=== PATIENT | female | born 1965 | race Caucasian/White ===

== ENCOUNTER 2016-11-06 15:14 | Emergency (ER) | payer MEDICAID ==
[~2016-11-06] VITALS: Ht 152.4 cm; Wt 68.0 kg
[2016-11-06 15:15] VITALS: BP_SYST 151
[2016-11-06] MEDS ORDERED: ASPIRIN 81 MG TAB.CHEW PO ONE (15:45)
[2016-11-06 15:58] LABS: BLOOD GAS PH 7.549 (7.350-7.450)
[2016-11-06 15:59] LABS: ABG TOTAL HEMOGLOBIN 8.5 G/dL (12.0-18.0); BLOOD GAS BASE EXCESS -0.8 mmol/L (-3.0-3.0); BLOOD GAS COHb% 1.2 % (0.5-1.5); BLOOD GAS HHB 2.2 % (0.0-6.0); BLOOD O2Hb% 95.8 % (94.0-97.0)
[2016-11-06] MEDS ORDERED: LORazepam 2 MG/ML VIAL (FOR ER USE) IVP ONE (16:00)
[2016-11-06 16:11] LABS: BASOPHILS % (AUTO) 0.8 % (0.0-2.0); EOSINOPHILS # (AUTO) 0.1 K/uL (0.0-0.4); EOSINOPHILS % (AUTO) 1.5 % (0.0-4.0); HEMATOCRIT 26.1 % (36-48); HEMOGLOBIN 7.9 g/dL (12.0-16.0); LYMPHOCYTES # (AUTO) 1.7 K/uL (1.0-5.5); LYMPHOCYTES % (AUTO) 27.7 % (20.5-51.5); MEAN CORPUSCULAR HEMOGLOBIN 21 pg (27-31); MEAN CORPUSCULAR HGB CONC 30 % (32-36); MEAN CORPUSCULAR VOLUME 67 fL (79.0-98.0); MONOCYTES # (AUTO) 0.5 K/uL (0.0-1.0); MONOCYTES % (AUTO) 7.9 % (1.7-9.3); NEUTROPHILS # (AUTO) 3.8 K/uL (1.8-7.7); NEUTROPHILS % (AUTO) 62.1 % (40.0-70.0); PLATELET COUNT (AUTO) 286 K/uL (130-430); RED BLOOD CELL COUNT(AUTO) 3.88 MIL/uL (4.2-6.2); RED CELL DISTRIBUTION WIDTH 16.8 % (9.0-15.0); WHITE BLOOD COUNT (AUTO) 6.1 K/uL (4.8-10.8)
[2016-11-06 16:17] LABS: CALCIUM 8.6 mg/dL (8.4-11.0); CREATININE 0.63 mg/dL (0.55-1.30); POTASSIUM 3.3 mmol/L (3.5-5.1)
[2016-11-06 16:19] LABS: PROTHROMBIN TIME 10.6 SECS (9.5-12.5)
[2016-11-06 16:22] LABS: ALBUMIN 3.4 g/dL (3.4-4.8); TOTAL BILIRUBIN 0.5 mg/dL (0.0-1.0)
[2016-11-06 16:25] LABS: BILIRUBIN,URINE NEGATIVE (NEGATIVE); BLOOD, URINE NEGATIVE (NEGATIVE); CLARITY/URINE CLEAR (CLEAR); COLOR,URINE YELLOW (YELLOW); GLUCOSE,URINE NEGATIVE (NEGATIVE); KETONES,URINE TRACE (NEGATIVE); LEUKOCYTE ESTERASE ,URINE NEGATIVE (NEGATIVE); NITRITE, URINE NEGATIVE (NEGATIVE); PH,URINE 6.5 (5.0-8.0); PROTEIN URINE NEGATIVE (NEGATIVE)
[2016-11-06] MEDS ORDERED: POTASSIUM CHLORIDE 20 MEQ TAB.PRT.SR PO ONE (16:30)
[2016-11-06 17:15] VITALS: BP_SYST 158
== END 2016-11-06 17:15 | disposition home or self-care (01) ==
LOC: SED 15:14
DX: F41.9 Anxiety disorder, unspecified (principal); E87.6 Hypokalemia; D64.9 Anemia, unspecified
CPT/HCPCS: 36415; 36600; 71010; 80053; 81003; 82803; 83880; 84484; 85025; 85379; 85610; 93005; 96374; 99285; J2060

== ENCOUNTER 2017-05-13 19:33 | Emergency (ER) | payer MEDICAID ==
[~2017-05-13] VITALS: Ht 152.4 cm; Wt 59.0 kg
[2017-05-13 19:46] VITALS: BP_SYST 122
--- NOTE | 2017-05-13 19:57 | NUR ---
Patient triaged and placed in waiting room. VSS and patient appears in no acute distress at this time. Accompanied by family, awaiting available bed, and MD notified of need for MSE.
--- NOTE | 2017-05-13 20:45 | NUR ---
Pt ambulatory tro torrie ramirez for evaluation
--- NOTE | 2017-05-13 20:50 | NUR ---
Patient arrived to ED a/o x 3 with c/o anxiety like symptoms x 1 hour. Patient reports rapid onset of chest pain radiating to left arm, SOB and ABD pain. Upon assessment respirations even and unlabored. EKG demonstrates sinus rhythm. Skin warm and dry. Denies N/V.
--- NOTE | 2017-05-13 21:00 | NUR ---
ED MD Jay at bedside for medical evaluation.
[2017-05-13] MEDS ORDERED: LORazepam 1 MG TABLET PO ONE (21:15)
[2017-05-13 22:07] VITALS: BP_SYST 131
--- NOTE | 2017-05-13 22:07 | NUR ---
Patient given written and verbal discharge instructions and verbalizes understanding. ER MD discussed with patient the results and treatment provided. Patient in stable condition. ID arm band removed. Rx of Xanax given. Patient educated on pain management and to follow up with PMD. Pain Scale 2/10 tolerable for patient. Opportunity for questions provided and answered.
== END 2017-05-13 22:07 | disposition home or self-care (01) ==
LOC: SED 19:33
DX: F41.9 Anxiety disorder, unspecified (principal); Z90.710 Acquired absence of both cervix and uterus; Z86.2 Personal history of diseases of the blood and blood-forming organs and certain disorders involving the immune mechanism; Z88.8 Allergy status to other drugs, medicaments and biological substances
CPT/HCPCS: 93005; 99284

== ENCOUNTER 2017-10-17 01:10 | Emergency (ER) | payer MEDICAID ==
[~2017-10-17] VITALS: Ht 160 cm; Wt 63.5 kg
[2017-10-17 01:25] VITALS: BP_SYST 138
--- NOTE | 2017-10-17 01:25 | NUR ---
Patient to ER via triage with c/o right sided pain from her neck down to her right leg. Patient reports taking Ibuprofen 800 mg @ 2330 without relief. Patient denies any trauma/injury. Patient is awake, alert and oriented in no acute distress, vital signs stable, respirations even and unlabored, skin warm and dry to touch. Patient is resting quietly in position of comfort. Awaiting evaluation by ER MD, will continue to observe and assess.
--- NOTE | 2017-10-17 01:25 | NUR ---
Patient to ER bed 6 to gown for evaluation. Side rails up. Report given to ASHLEY Magaña.
--- NOTE | 2017-10-17 01:30 | NUR ---
Dr Carrasco at bedside to evaluate patient.
[2017-10-17] MEDS ORDERED: LORazepam 1 MG TABLET PO ONE (01:45)
[2017-10-17] MEDS ORDERED: KETOROLAC TROMETHAMINE 60 MG/2 ML VIAL IM ONE (01:45)
--- NOTE | 2017-10-17 01:45 | NUR ---
Patient to X-ray department for films in stable condition via wheelchair.
--- NOTE | 2017-10-17 01:55 | NUR ---
Patient returned from radiology in stable condition via wheelchair.
[2017-10-17 02:40] VITALS: BP_SYST 123
--- NOTE | 2017-10-17 02:40 | NUR ---
Patient given written and verbal discharge instructions and verbalizes understanding. ER MD discussed with patient the results and treatment provided. Patient in stable condition. ID arm band removed. Rx of Motrin, Tramadol given. Patient educated on pain management and to follow up with PMD. Pain Scale 2. Opportunity for questions provided and answered. Medication side effect fact sheet provided. Patient left ER ambulating with slow, steady gait in no acute distress. Patient reports that she has a friend to drive her home. No adverse reaction noted to medication, no questions related to aftercare.
== END 2017-10-17 02:40 | disposition home or self-care (01) ==
LOC: SED 01:10
DX: S46.811A Strain of other muscles, fascia and tendons at shoulder and upper arm level, right arm, initial encounter (principal); S39.012A Strain of muscle, fascia and tendon of lower back, initial encounter; M54.30 Sciatica, unspecified side; F41.9 Anxiety disorder, unspecified; D64.9 Anemia, unspecified; Z90.49 Acquired absence of other specified parts of digestive tract; Z90.710 Acquired absence of both cervix and uterus; R03.0 Elevated blood-pressure reading, without diagnosis of hypertension; X58.XXXA Exposure to other specified factors, initial encounter; Y93.89 Activity, other specified; Y92.89 Other specified places as the place of occurrence of the external cause; Y99.8 Other external cause status
CPT/HCPCS: 71045; 72100; 96372; 99284; J1885

== ENCOUNTER 2017-11-30 00:55 | Emergency (ER) | payer MEDICAID ==
[~2017-11-30] VITALS: Ht 152.4 cm; Wt 66.2 kg
[2017-11-30] MEDS ORDERED: NACL 0.9% 1,000 ML IV ONE (00:59)
[2017-11-30 01:10] VITALS: BP_SYST 136
[2017-11-30 01:40] LABS: BASOPHILS % (AUTO) 0.8 % (0.0-2.0); EOSINOPHILS # (AUTO) 0.4 K/uL (0.0-0.4); EOSINOPHILS % (AUTO) 6.2 % (0.0-4.0); HEMATOCRIT 42.1 % (36-48); HEMOGLOBIN 14.5 g/dL (12.0-16.0); LYMPHOCYTES # (AUTO) 2.2 K/uL (1.0-5.5); LYMPHOCYTES % (AUTO) 34.9 % (20.5-51.5); MEAN CORPUSCULAR HEMOGLOBIN 30 pg (27-31); MEAN CORPUSCULAR HGB CONC 34 % (32-36); MEAN CORPUSCULAR VOLUME 86 fL (79.0-98.0); MONOCYTES # (AUTO) 0.5 K/uL (0.0-1.0); MONOCYTES % (AUTO) 8.5 % (1.7-9.3); NEUTROPHILS # (AUTO) 3.1 K/uL (1.8-7.7); NEUTROPHILS % (AUTO) 49.6 % (40.0-70.0); PLATELET COUNT (AUTO) 304 K/uL (130-430); RED BLOOD CELL COUNT(AUTO) 4.91 MIL/uL (4.2-6.2); RED CELL DISTRIBUTION WIDTH 14.3 % (9.0-15.0); WHITE BLOOD COUNT (AUTO) 6.2 K/uL (4.8-10.8)
[2017-11-30 01:51] LABS: CALCIUM 8.8 mg/dL (8.4-11.0); CREATININE 0.72 mg/dL (0.55-1.30); POTASSIUM 3.6 mmol/L (3.5-5.1)
[2017-11-30 01:53] LABS: PROTHROMBIN TIME 9.9 SECS (9.5-12.5)
[2017-11-30 01:55] LABS: ALBUMIN 3.4 g/dL (3.4-4.8); TOTAL BILIRUBIN 0.3 mg/dL (0.0-1.0)
[2017-11-30] MEDS ORDERED: MAG HYDROX/AL HYDROX/SIMETH 30 ML, BELLADONNA ALKALOIDS/PHENOBARB 10 ML, LIDOCAINE VISC... PO ONE ×3 (02:15)
[2017-11-30 02:22] LABS: BILIRUBIN,URINE NEGATIVE (NEGATIVE); BLOOD, URINE NEGATIVE (NEGATIVE); CLARITY/URINE CLEAR (CLEAR); COLOR,URINE YELLOW (YELLOW); GLUCOSE,URINE NEGATIVE (NEGATIVE); KETONES,URINE NEGATIVE (NEGATIVE); LEUKOCYTE ESTERASE ,URINE NEGATIVE (NEGATIVE); NITRITE, URINE NEGATIVE (NEGATIVE); PH,URINE 6.5 (5.0-8.0); PROTEIN URINE NEGATIVE (NEGATIVE)
[2017-11-30 02:50] VITALS: BP_SYST 127
== END 2017-11-30 02:50 | disposition home or self-care (01) ==
LOC: SED 00:55
DX: F41.9 Anxiety disorder, unspecified (principal); K21.9 Gastro-esophageal reflux disease without esophagitis; R03.0 Elevated blood-pressure reading, without diagnosis of hypertension; Z86.2 Personal history of diseases of the blood and blood-forming organs and certain disorders involving the immune mechanism; Z88.8 Allergy status to other drugs, medicaments and biological substances
CPT/HCPCS: 36415; 80053; 81003; 82150; 83690; 85025; 85610; 85730; 99284; J2001; J7030

== ENCOUNTER 2018-03-05 14:29 | Emergency (ER) | payer MEDICAID ==
[~2018-03-05] VITALS: Ht 152.4 cm; Wt 68.0 kg
[2018-03-05 14:53] VITALS: BP_SYST 98
[2018-03-05] MEDS ORDERED: NACL 0.9% 1,000 ML IV ONE (15:19)
[2018-03-05] MEDS ORDERED: KETOROLAC TROMETHAMINE 30 MG VIAL IVP ONE (15:30)
[2018-03-05 15:51] LABS: BILIRUBIN,URINE NEGATIVE (NEGATIVE); BLOOD, URINE NEGATIVE (NEGATIVE); CLARITY/URINE CLEAR (CLEAR); COLOR,URINE YELLOW (YELLOW); GLUCOSE,URINE NEGATIVE (NEGATIVE); KETONES,URINE TRACE (NEGATIVE); LEUKOCYTE ESTERASE ,URINE NEGATIVE (NEGATIVE); NITRITE, URINE NEGATIVE (NEGATIVE); PROTEIN URINE NEGATIVE (NEGATIVE)
[2018-03-05 16:01] LABS: BASOPHILS # (AUTO) 0.1 K/uL (0.0-0.2); BASOPHILS % (AUTO) 1.1 % (0.0-2.0); EOSINOPHILS # (AUTO) 0.3 K/uL (0.0-0.4); EOSINOPHILS % (AUTO) 3.7 % (0.0-4.0); HEMATOCRIT 45.7 % (36-48); HEMOGLOBIN 15.2 g/dL (12.0-16.0); LYMPHOCYTES # (AUTO) 1.7 K/uL (1.0-5.5); LYMPHOCYTES % (AUTO) 23.6 % (20.5-51.5); MEAN CORPUSCULAR HEMOGLOBIN 31 pg (27-31); MEAN CORPUSCULAR HGB CONC 33 % (32-36); MEAN CORPUSCULAR VOLUME 94 fL (79.0-98.0); MONOCYTES # (AUTO) 0.5 K/uL (0.0-1.0); MONOCYTES % (AUTO) 7.3 % (1.7-9.3); NEUTROPHILS # (AUTO) 4.6 K/uL (1.8-7.7); NEUTROPHILS % (AUTO) 64.3 % (40.0-70.0); PLATELET COUNT (AUTO) 271 K/uL (130-430); RED BLOOD CELL COUNT(AUTO) 4.88 MIL/uL (4.2-6.2); RED CELL DISTRIBUTION WIDTH 14.4 % (9.0-15.0); WHITE BLOOD COUNT (AUTO) 7.2 K/uL (4.8-10.8)
[2018-03-05 16:14] LABS: CALCIUM 8.8 mg/dL (8.4-11.0); CREATININE 0.52 mg/dL (0.55-1.30); POTASSIUM 3.3 mmol/L (3.5-5.1)
[2018-03-05 16:18] LABS: ALBUMIN 3.4 g/dL (3.4-4.8); TOTAL BILIRUBIN 0.6 mg/dL (0.0-1.0)
[2018-03-05] MEDS ORDERED: MORPHINE 4 MG/ML INJ. SYRINGE IVP ONE (17:00)
[2018-03-05 17:19] VITALS: BP_SYST 98
== END 2018-03-05 17:20 | disposition home or self-care (01) ==
LOC: SED 14:29
DX: S33.9XXA Sprain of unspecified parts of lumbar spine and pelvis, initial encounter (principal); S70.01XA Contusion of right hip, initial encounter; F41.9 Anxiety disorder, unspecified; Z86.2 Personal history of diseases of the blood and blood-forming organs and certain disorders involving the immune mechanism; Z90.710 Acquired absence of both cervix and uterus; Z88.8 Allergy status to other drugs, medicaments and biological substances; W01.0XXA Fall on same level from slipping, tripping and stumbling without subsequent striking against object, initial encounter; Y93.89 Activity, other specified; Y92.89 Other specified places as the place of occurrence of the external cause; Y99.8 Other external cause status
CPT/HCPCS: 36415; 72100; 73502; 73552; 80053; 81003; 85025; 96374; 96375; 99285; J1885; J2270; J7030; 96361

== ENCOUNTER 2018-03-13 12:59 | Emergency (ER) | payer MEDICAID ==
[~2018-03-13] VITALS: Ht 152.4 cm; Wt 68.0 kg
[2018-03-13 13:12] VITALS: BP_SYST 120
--- NOTE | 2018-03-13 13:18 | NUR ---
Pt placed in bed 6
--- NOTE | 2018-03-13 13:22 | NUR ---
ER AL Awad examining patient.
[2018-03-13] MEDS ORDERED: PANTOPRAZOLE SODIUM 40 MG TAB PO ONE (13:30)
[2018-03-13] MEDS ORDERED: MAG-AL HYDROX/SIMETH 30 ML UDC PO ONE (13:30)
--- NOTE | 2018-03-13 13:37 | NUR ---
Pt AAOx4 ambulated into ED c/o 11/15 pain to throat x "a few months." Pt was seen at [facility] where they attempted a bronchoscopy but failed as her "vocal chord were closed and they couldn't insert the tube the whole way through." Pt has been prescribed antibiotics but is non-compliant. Pt has appointment with ENT specialist at the end of April. Skin pink dry and warm, breathing even and unlabored. No other injuries/complaints per pt/noted. Will continue to monitor.
--- NOTE | 2018-03-13 13:40 | NUR ---
PT taken to radiology in stable condition
[2018-03-13 14:29] LABS: BASOPHILS # (AUTO) 0.1 K/uL (0.0-0.2); BASOPHILS % (AUTO) 0.8 % (0.0-2.0); EOSINOPHILS # (AUTO) 0.2 K/uL (0.0-0.4); HEMATOCRIT 47.7 % (36-48); HEMOGLOBIN 15.4 g/dL (12.0-16.0); LYMPHOCYTES # (AUTO) 2.2 K/uL (1.0-5.5); LYMPHOCYTES % (AUTO) 26.2 % (20.5-51.5); MEAN CORPUSCULAR HEMOGLOBIN 31 pg (27-31); MEAN CORPUSCULAR HGB CONC 32 % (32-36); MEAN CORPUSCULAR VOLUME 95 fL (79.0-98.0); MONOCYTES # (AUTO) 0.7 K/uL (0.0-1.0); MONOCYTES % (AUTO) 8.3 % (1.7-9.3); NEUTROPHILS # (AUTO) 5.1 K/uL (1.8-7.7); NEUTROPHILS % (AUTO) 61.7 % (40.0-70.0); PLATELET COUNT (AUTO) 306 K/uL (130-430); RED BLOOD CELL COUNT(AUTO) 5.05 MIL/uL (4.2-6.2); RED CELL DISTRIBUTION WIDTH 14.6 % (9.0-15.0); WHITE BLOOD COUNT (AUTO) 8.3 K/uL (4.8-10.8)
[2018-03-13 14:50] LABS: CALCIUM 9.5 mg/dL (8.4-11.0); CREATININE 0.5 mg/dL (0.55-1.30)
[2018-03-13 14:54] LABS: ALBUMIN 3.5 g/dL (3.4-4.8); TOTAL BILIRUBIN 0.6 mg/dL (0.0-1.0)
[2018-03-13 15:01] LABS: BILIRUBIN,URINE NEGATIVE (NEGATIVE); BLOOD, URINE NEGATIVE (NEGATIVE); CLARITY/URINE CLEAR (CLEAR); COLOR,URINE YELLOW (YELLOW); GLUCOSE,URINE NEGATIVE (NEGATIVE); KETONES,URINE NEGATIVE (NEGATIVE); LEUKOCYTE ESTERASE ,URINE NEGATIVE (NEGATIVE); NITRITE, URINE NEGATIVE (NEGATIVE); PH,URINE 7.5 (5.0-8.0); PROTEIN URINE NEGATIVE (NEGATIVE); UROBILINOGEN,URINE 0.2 (0.2-1.0)
--- NOTE | 2018-03-13 15:49 | NUR ---
Patient given written and verbal discharge instructions and verbalizes understanding. ER MD discussed with patient the results and treatment provided. Patient in stable condition. ID arm band removed. Rx of Omeprazole, Prednisone given. Patient educated on pain management and to follow up with PMD. Pain Scale 0/10. Opportunity for questions provided and answered. Medication side effect fact sheet provided.
[2018-03-13 15:50] VITALS: BP_SYST 116
== END 2018-03-13 15:50 | disposition home or self-care (01) ==
LOC: SED 12:59
DX: K21.9 Gastro-esophageal reflux disease without esophagitis (principal); F41.9 Anxiety disorder, unspecified; Z86.2 Personal history of diseases of the blood and blood-forming organs and certain disorders involving the immune mechanism; Z90.49 Acquired absence of other specified parts of digestive tract; Z90.710 Acquired absence of both cervix and uterus; Z88.8 Allergy status to other drugs, medicaments and biological substances
CPT/HCPCS: 36415; 70360-TC; 80053; 81003; 83690-TC; 85025; 99285

== ENCOUNTER 2018-05-04 16:12 | Inpatient (IN) | payer MEDICAID ==
[~2018-05-04] VITALS: Ht 152.4 cm; Wt 68.9 kg
[2018-05-04 16:22] VITALS: BP_SYST 115
[2018-05-04] MEDS ORDERED: NACL 0.9% 1,000 ML IV ONE (17:15)
[2018-05-04 17:29] LABS: BILIRUBIN,URINE NEGATIVE (NEGATIVE); BLOOD, URINE NEGATIVE (NEGATIVE); CLARITY/URINE CLEAR (CLEAR); COLOR,URINE YELLOW (YELLOW); GLUCOSE,URINE NEGATIVE (NEGATIVE); KETONES,URINE 1+ (NEGATIVE); LEUKOCYTE ESTERASE ,URINE NEGATIVE (NEGATIVE); NITRITE, URINE NEGATIVE (NEGATIVE); PROTEIN URINE TRACE (NEGATIVE)
[2018-05-04 17:33] LABS: BACTERIA,URINE FEW /HPF (None Seen); MUCUS,URINE 2+ /LPF (None Seen); RBC,URINE 0-3 /HPF (0-3); WBC,URINE 0-3 /HPF (0-3)
[2018-05-04 18:01] LABS: BASOPHILS % (AUTO) 0.1 % (0.0-2.0); EOSINOPHILS % (AUTO) 0.2 % (0.0-4.0); HEMATOCRIT 45.5 % (36-48); HEMOGLOBIN 15.8 g/dL (12.0-16.0); LYMPHOCYTES # (AUTO) 1.2 K/uL (1.0-5.5); MEAN CORPUSCULAR HEMOGLOBIN 32 pg (27-31); MEAN CORPUSCULAR HGB CONC 35 % (32-36); MEAN CORPUSCULAR VOLUME 92 fL (79.0-98.0); MONOCYTES # (AUTO) 0.4 K/uL (0.0-1.0); MONOCYTES % (AUTO) 3.5 % (1.7-9.3); NEUTROPHILS # (AUTO) 10.5 K/uL (1.8-7.7); NEUTROPHILS % (AUTO) 86.2 % (40.0-70.0); PLATELET COUNT (AUTO) 281 K/uL (130-430); RED BLOOD CELL COUNT(AUTO) 4.96 MIL/uL (4.2-6.2); WHITE BLOOD COUNT (AUTO) 12.1 K/uL (4.8-10.8)
[2018-05-04 18:09] LABS: CREATININE 0.61 mg/dL (0.55-1.30); POTASSIUM 3.7 mmol/L (3.5-5.1)
[2018-05-04 18:12] LABS: PROTHROMBIN TIME 9.9 SECS (9.5-12.5)
[2018-05-04 18:14] LABS: ALBUMIN 3.6 g/dL (3.4-4.8)
[2018-05-04] MEDS ORDERED: cefTRIAXone 1 GM in D5W 50 ML IV ONE (18:45)
[2018-05-04] MEDS ORDERED: NACL 0.9% 2,500 ML IV ONE (18:45)
[2018-05-04] MEDS ORDERED: metroNIDAZOLE 500 mg/NS 100 ML IV ONE (18:45)
[2018-05-04] MEDS ORDERED: MORPHINE 2 MG/ML INJ. SYRINGE IVP ONE (18:45)
[2018-05-04] MEDS ORDERED: MORPHINE 4 MG/ML INJ. SYRINGE IVP PRN ×4 (19:00→21:00)
[2018-05-04] MEDS ORDERED: D5NS 1,000 ML IV ONE (19:00)
[2018-05-04] MEDS ORDERED: cefTRIAXone 1 GM VIAL ONE (19:15)
[2018-05-04] MEDS ORDERED: MORPHINE 4 MG/ML INJ. SYRINGE ONE (19:18)
[2018-05-04] MEDS ORDERED: MUPIROCIN 2% TOPICAL OINTMENT 22 GM NS PRN (19:30)
[2018-05-04] MEDS ORDERED: LORazepam 2 MG/ML VIAL IVP PRN (19:30)
[2018-05-04] MEDS ORDERED: D5NS 1,000 ML IV SCH (19:30)
[2018-05-04] MEDS ORDERED: POTASSIUM CHLORIDE 20 MEQ TAB.PRT.SR PO PRN (19:30)
[2018-05-04] MEDS ORDERED: ONDANSETRON HCL 4 MG/2 ML VIAL IVP PRN (19:30)
[2018-05-04] MEDS ORDERED: ZOLPIDEM TARTRATE 5 MG TABLET PO PRN (19:30)
[2018-05-04] MEDS ORDERED: DOCUSATE SODIUM 100 MG CAPSULE PO PRN (19:30)
[2018-05-04] MEDS ORDERED: ACETAMINOPHEN 325 MG TABLET PO PRN (19:30)
[2018-05-04] MEDS ORDERED: PIPERACILLIN/TAZO 3.375/DEX-IS 50 ML IV ONE (19:30)
[2018-05-04] MEDS ORDERED: MAGNESIUM SULFATE 50 ML IV PRN (19:30)
[2018-05-04 20:42] VITALS: BP_SYST 128
[2018-05-04] MEDS ORDERED: PIPERACILLIN/TAZOBACTAM 3.375 GM/VIAL (ZOSYN) IV ONE (22:01)
[2018-05-04 22:12] VITALS: BP_SYST 128
[2018-05-04] MEDS: ONDANSETRON HCL 4 MG/2 ML VIAL IVP PRN (22:38)
[2018-05-04] MEDS: PIPERACILLIN/TAZO 3.375/DEX-IS 50 ML IV SCH (22:47)
[2018-05-04] MEDS: NACL 0.9% 1,000 ML IV SCH (23:07)
[2018-05-05] MEDS ORDERED: PIPERACILLIN/TAZO 3.375/DEX-IS 50 ML IV SCH
[2018-05-05 02:00] VITALS: BP_SYST 108
[2018-05-05] MEDS: PIPERACILLIN/TAZO 3.375/DEX-IS 50 ML IV SCH ×3 (04:56→15:31)
[2018-05-05 07:09] LABS: BASOPHILS % (AUTO) 0.5 % (0.0-2.0); EOSINOPHILS # (AUTO) 0.2 K/uL (0.0-0.4); EOSINOPHILS % (AUTO) 2.1 % (0.0-4.0); HEMATOCRIT 36.5 % (36-48); HEMOGLOBIN 12.9 g/dL (12.0-16.0); LYMPHOCYTES # (AUTO) 1.9 K/uL (1.0-5.5); LYMPHOCYTES % (AUTO) 26.1 % (20.5-51.5); MEAN CORPUSCULAR HEMOGLOBIN 33 pg (27-31); MEAN CORPUSCULAR HGB CONC 35 % (32-36); MEAN CORPUSCULAR VOLUME 93 fL (79.0-98.0); MONOCYTES # (AUTO) 0.6 K/uL (0.0-1.0); MONOCYTES % (AUTO) 7.9 % (1.7-9.3); NEUTROPHILS # (AUTO) 4.6 K/uL (1.8-7.7); NEUTROPHILS % (AUTO) 63.4 % (40.0-70.0); PLATELET COUNT (AUTO) 247 K/uL (130-430); RED BLOOD CELL COUNT(AUTO) 3.93 MIL/uL (4.2-6.2); RED CELL DISTRIBUTION WIDTH 12.4 % (9.0-15.0); WHITE BLOOD COUNT (AUTO) 7.3 K/uL (4.8-10.8)
[2018-05-05 07:19] LABS: CALCIUM 7.9 mg/dL (8.4-11.0); CREATININE 0.63 mg/dL (0.55-1.30); POTASSIUM 3.1 mmol/L (3.5-5.1)
[2018-05-05 07:27] LABS: ALBUMIN 2.5 g/dL (3.4-4.8); TOTAL BILIRUBIN 0.9 mg/dL (0.0-1.0)
[2018-05-05] MEDS: NACL 0.9% 1,000 ML IV SCH ×2 (07:41→13:15)
[2018-05-05 12:31] VITALS: BP_SYST 100
[2018-05-05] MEDS ORDERED: KCL 20 mEq in 100 mL (PREMIX) 100 ML IV ONE (12:45)
[2018-05-05] MEDS: HYDROmorphone 1 MG INJ. 1 MG/ML AMPUL IVP PRN ×2 (12:48→20:01)
[2018-05-05] MEDS ORDERED: fentaNYL CITRATE/PF 100 MCG/2 ML AMP IVP PRN ×2 (15:45)
[2018-05-05] MEDS ORDERED: KETOROLAC TROMETHAMINE 30 MG VIAL IVP PRN (15:45)
[2018-05-05] MEDS ORDERED: ONDANSETRON HCL 4 MG/2 ML VIAL IVP PRN (15:45)
[2018-05-05] MEDS: ALBUTEROL SULFATE 0.083% 2.5 MG/3 ML VIAL.NEB INH PRN ×2 (18:06→22:43)
[2018-05-05] MEDS ORDERED: ALBUTEROL SULFATE 0.083% 2.5 MG/3 ML VIAL.NEB INH ONE (18:14)
[2018-05-05 19:45] VITALS: BP_SYST 117
[2018-05-05] MEDS: ONDANSETRON HCL 4 MG/2 ML VIAL IVP PRN (20:00)
[2018-05-05] MEDS: LORazepam 2 MG/ML VIAL IVP PRN (23:11)
[2018-05-05] MEDS ORDERED: MAG-AL HYDROX/SIMETH 30 ML UDC PO PRN (23:45)
[2018-05-05] MEDS: guaiFENesin 200 MG/10 ML UDC PO PRN (23:59)
[2018-05-06] MEDS: PIPERACILLIN/TAZO 3.375/DEX-IS 50 ML IV SCH ×5 (00:37→22:09)
[2018-05-06] MEDS: NACL 0.9% 1,000 ML IV SCH ×3 (00:37→22:09)
[2018-05-06 00:45] VITALS: BP_SYST 117
[2018-05-06] MEDS: LORazepam 2 MG/ML VIAL IVP PRN (09:43)
[2018-05-06] MEDS: ALBUTEROL SULFATE 0.083% 2.5 MG/3 ML VIAL.NEB INH PRN (10:25)
[2018-05-06] MEDS: guaiFENesin 200 MG/10 ML UDC PO PRN (10:29)
[2018-05-06 12:02] VITALS: BP_SYST 99
[2018-05-06] MEDS ORDERED: ROCURONIUM BROMIDE 10 MG/ML (ZEMURON) IV ONE (15:56)
[2018-05-06] MEDS ORDERED: GLYCOPYRROLATE 0.2 MG/ML VIAL IJ ONE (15:56)
[2018-05-06] MEDS ORDERED: MIDAZOLAM HCL 5 MG/5 ML VIAL IVP ONE (15:56)
[2018-05-06] MEDS ORDERED: LIDOCAINE 2%, 20 ML MDV INJ ONE (15:56)
[2018-05-06] MEDS ORDERED: BUPIVACAINE /EPINEPHRINE/PF 0.5% 30 ML VIAL INJ ONE (15:56)
[2018-05-06] MEDS ORDERED: DEXAMETHASONE SOD PHOSPHATE 20 MG/5 ML VIAL IVP ONE (15:56)
[2018-05-06] MEDS ORDERED: LR 1,000 ML IV.SOLN IV ONE (15:56)
[2018-05-06] MEDS ORDERED: PROPOFOL 200MG/ 20ML VIAL (DIPRIVAN) IV ONE (15:56)
[2018-05-06] MEDS ORDERED: KETOROLAC TROMETHAMINE 30 MG VIAL IVP ONE (15:56)
[2018-05-06] MEDS ORDERED: ALBUTEROL SULFATE 0.083% 2.5 MG/3 ML VIAL.NEB INH ONE (15:56)
[2018-05-06] MEDS ORDERED: fentaNYL CITRATE/PF 100 MCG/2 ML AMP IVP ONE (15:56)
[2018-05-06] MEDS ORDERED: NS 1000 ML IV.SOLN IV ONE (15:56)
[2018-05-06] MEDS ORDERED: SEVOFLURANE 15 MIN GAS INH ONE (15:56)
[2018-05-06 16:02] VITALS: BP_SYST 118
[2018-05-06 19:40] VITALS: BP_SYST 128
[2018-05-07] MEDS: ONDANSETRON HCL 4 MG/2 ML VIAL IVP PRN (00:09)
[2018-05-07] MEDS: NACL 0.9% 1,000 ML IV SCH ×3 (00:10→13:15)
[2018-05-07] MEDS: HYDROmorphone 1 MG INJ. 1 MG/ML AMPUL IVP PRN (00:10)
[2018-05-07] MEDS: ALBUTEROL SULFATE 0.083% 2.5 MG/3 ML VIAL.NEB INH PRN (00:34)
[2018-05-07 01:38] VITALS: BP_SYST 105
[2018-05-07] MEDS: PIPERACILLIN/TAZO 3.375/DEX-IS 50 ML IV SCH ×2 (04:23→08:37)
[2018-05-07 08:35] VITALS: BP_SYST 97
[2018-05-07] MEDS ORDERED: METR500T PO (09:34)
[2018-05-07] MEDS ORDERED: AMOX-426 PO (09:34)
[2018-05-07 11:28] VITALS: BP_SYST 101
[2018-05-07 11:50] VITALS: BP_SYST 101
[2018-05-07] MEDS ORDERED: HYDROcodone/ACETAMIN 5-325 MG TAB (NORCO/ VICODIN) PO ONE (12:15)
[2018-05-07 14:25] VITALS: BP_SYST 97
== END 2018-05-07 15:05 | disposition home or self-care (01) | DRG 233 ==
LOC: SED 16:12 → SMU 19:03
PROVIDERS: ADMIT Internal Medicine; ATTEND Internal Medicine
PROC: 0DTJ4ZZ Resection of Appendix, Percutaneous Endoscopic Approach (ICD-10-PCS; principal; 2018-05-05 14:30)
DX: K35.33 Acute appendicitis with perforation, localized peritonitis, and gangrene, with abscess (principal); K31.84 Gastroparesis; E11.43 Type 2 diabetes mellitus with diabetic autonomic (poly)neuropathy; R65.10 Systemic inflammatory response syndrome (SIRS) of non-infectious origin without acute organ dysfunction; K57.20 Diverticulitis of large intestine with perforation and abscess without bleeding; F41.9 Anxiety disorder, unspecified; Z90.710 Acquired absence of both cervix and uterus; Z98.84 Bariatric surgery status; Z88.8 Allergy status to other drugs, medicaments and biological substances; Z90.49 Acquired absence of other specified parts of digestive tract; Z88.2 Allergy status to sulfonamides
CPT/HCPCS: 36415; 71045; 80053; 81000-TC; 83605; 84484; 85025; 85610-TC; 85730-TC; 87040-TC; 87081; 88304; 93005; 94640; 96361; 96374; 99285; C1727; J0696; J1100; J1170; J1885; J2001; J2060; J2250; J2270; J2405; J2543; J2704; J3010; J3480; J3490; J7030; J7060; J7120; J7613

== ENCOUNTER 2018-05-22 08:31 | Inpatient (IN) | payer MEDICAID ==
[~2018-05-22] VITALS: Ht 152.4 cm; Wt 68.0 kg
[~2018-05-22 08:31] MED LIST: AMOX-426 PO; METR500T PO
[2018-05-22 08:58] VITALS: BP_SYST 128
[2018-05-22] MEDS ORDERED: ONDANSETRON HCL 4 MG/2 ML VIAL IVP ONE ×2 (09:30→11:30)
[2018-05-22] MEDS ORDERED: KETOROLAC TROMETHAMINE 30 MG VIAL IVP ONE (09:30)
[2018-05-22 10:09] LABS: BASOPHILS % (AUTO) 0.8 % (0.0-2.0); EOSINOPHILS # (AUTO) 0.3 K/uL (0.0-0.4); EOSINOPHILS % (AUTO) 5.3 % (0.0-4.0); HEMATOCRIT 43.7 % (36-48); HEMOGLOBIN 14.7 g/dL (12.0-16.0); LYMPHOCYTES # (AUTO) 1.5 K/uL (1.0-5.5); LYMPHOCYTES % (AUTO) 26.5 % (20.5-51.5); MEAN CORPUSCULAR HEMOGLOBIN 31 pg (27-31); MEAN CORPUSCULAR HGB CONC 34 % (32-36); MEAN CORPUSCULAR VOLUME 93 fL (79.0-98.0); MONOCYTES # (AUTO) 0.5 K/uL (0.0-1.0); MONOCYTES % (AUTO) 8.5 % (1.7-9.3); NEUTROPHILS # (AUTO) 3.4 K/uL (1.8-7.7); NEUTROPHILS % (AUTO) 58.9 % (40.0-70.0); PLATELET COUNT (AUTO) 252 K/uL (130-430); RED BLOOD CELL COUNT(AUTO) 4.68 MIL/uL (4.2-6.2); WHITE BLOOD COUNT (AUTO) 5.7 K/uL (4.8-10.8)
[2018-05-22 10:16] LABS: CALCIUM 8.8 mg/dL (8.4-11.0); CREATININE 0.52 mg/dL (0.55-1.30)
[2018-05-22 10:19] LABS: INR 0.9 (0.8-1.2); PROTHROMBIN TIME 9.5 SECS (9.5-12.5)
[2018-05-22 10:20] LABS: ALBUMIN 3.2 g/dL (3.4-4.8); TOTAL BILIRUBIN 0.4 mg/dL (0.0-1.0)
[2018-05-22] MEDS ORDERED: IOHEXOL 100 ML IV ONE (10:29)
[2018-05-22] MEDS ORDERED: LORA-258 PO (11:28)
[2018-05-22] MEDS ORDERED: OMEP20CA10 PO (11:28)
[2018-05-22] MEDS ORDERED: PRO40 PO (11:28)
[2018-05-22] MEDS ORDERED: MORPHINE 4 MG/ML INJ. SYRINGE IVP ONE (11:30)
[2018-05-22] MEDS ORDERED: D5NS 1,000 ML IV SCH (12:35)
[2018-05-22 13:09] VITALS: BP_SYST 132
[2018-05-22 16:03] VITALS: BP_SYST 116
[2018-05-22] MEDS ORDERED: MORPHINE 4 MG/ML INJ. SYRINGE IVP PRN ×2 (16:15)
[2018-05-22] MEDS ORDERED: ACETAMINOPHEN 325 MG TABLET PO PRN (16:15)
[2018-05-22] MEDS ORDERED: METOCLOPRAMIDE HCL 10 MG/2 ML VIAL IVP PRN (16:15)
[2018-05-22] MEDS: D5NS 1,000 ML IV SCH (16:54)
[2018-05-23] MEDS: D5NS 1,000 ML IV SCH ×4 (00:57→23:34)
[2018-05-23 01:59] VITALS: BP_SYST 117
[2018-05-23] MEDS ORDERED: LORazepam 1 MG TABLET ONE (02:01)
[2018-05-23] MEDS: ONDANSETRON HCL 4 MG/2 ML VIAL IVP PRN (02:56)
[2018-05-23 08:00] VITALS: BP_SYST 106
[2018-05-23 12:10] VITALS: BP_SYST 142
[2018-05-23 16:35] VITALS: BP_SYST 102
[2018-05-23 19:33] VITALS: BP_SYST 118
[2018-05-23 20:44] LABS: BILIRUBIN,URINE NEGATIVE (NEGATIVE); BLOOD, URINE NEGATIVE (NEGATIVE); CLARITY/URINE CLEAR (CLEAR); COLOR,URINE YELLOW (YELLOW); GLUCOSE,URINE NEGATIVE (NEGATIVE); KETONES,URINE NEGATIVE (NEGATIVE); LEUKOCYTE ESTERASE ,URINE NEGATIVE (NEGATIVE); NITRITE, URINE NEGATIVE (NEGATIVE); PH,URINE 6.5 (5.0-8.0); PROTEIN URINE NEGATIVE (NEGATIVE); UROBILINOGEN,URINE 0.2 (0.2-1.0)
[2018-05-24] MEDS: LORazepam 1 MG TABLET PO PRN ×2 (00:08→12:33)
[2018-05-24 01:01] VITALS: BP_SYST 95
[2018-05-24 08:03] VITALS: BP_SYST 97
[2018-05-24] MEDS: D5NS 1,000 ML IV SCH ×3 (09:52→18:18)
[2018-05-24 12:02] VITALS: BP_SYST 111
[2018-05-24 16:02] VITALS: BP_SYST 118
[2018-05-24] MEDS ORDERED: PANTOPRAZOLE SODIUM 40 MG/VIAL (PROTONIX) IVP ONE (17:15)
[2018-05-24] MEDS: LACTOBACILLUS RHAMNOSUS GG 1 CAP CAPSULE PO SCH (20:26)
[2018-05-24] MEDS: CHOLESTYRAMINE/SUCROSE 4 GM/PACKET PO SCH (20:26)
[2018-05-25] MEDS: LORazepam 2 MG/ML VIAL IVP PRN ×2 (00:54→09:02)
[2018-05-25] MEDS: ONDANSETRON HCL 4 MG/2 ML VIAL IVP PRN (00:55)
[2018-05-25 01:03] VITALS: BP_SYST 124
[2018-05-25 07:17] LABS: CALCIUM 8.2 mg/dL (8.4-11.0); CREATININE 0.63 mg/dL (0.55-1.30); POTASSIUM 3.5 mmol/L (3.5-5.1)
[2018-05-25 08:00] VITALS: BP_SYST 113
[2018-05-25] MEDS: D5NS 1,000 ML IV SCH ×2 (08:13→15:53)
[2018-05-25 08:20] LABS: BASOPHILS % (AUTO) 0.6 % (0.0-2.0); EOSINOPHILS # (AUTO) 0.4 K/uL (0.0-0.4); EOSINOPHILS % (AUTO) 6.6 % (0.0-4.0); HEMATOCRIT 37.6 % (36-48); HEMOGLOBIN 13.1 g/dL (12.0-16.0); LYMPHOCYTES # (AUTO) 1.7 K/uL (1.0-5.5); LYMPHOCYTES % (AUTO) 31.8 % (20.5-51.5); MEAN CORPUSCULAR HEMOGLOBIN 33 pg (27-31); MEAN CORPUSCULAR HGB CONC 35 % (32-36); MEAN CORPUSCULAR VOLUME 93 fL (79.0-98.0); MONOCYTES # (AUTO) 0.5 K/uL (0.0-1.0); MONOCYTES % (AUTO) 9.5 % (1.7-9.3); NEUTROPHILS # (AUTO) 2.8 K/uL (1.8-7.7); NEUTROPHILS % (AUTO) 51.5 % (40.0-70.0); PLATELET COUNT (AUTO) 221 K/uL (130-430); RED BLOOD CELL COUNT(AUTO) 4.04 MIL/uL (4.2-6.2); RED CELL DISTRIBUTION WIDTH 12.1 % (9.0-15.0); WHITE BLOOD COUNT (AUTO) 5.4 K/uL (4.8-10.8)
[2018-05-25] MEDS: LACTOBACILLUS RHAMNOSUS GG 1 CAP CAPSULE PO SCH ×2 (09:00→21:00)
[2018-05-25] MEDS: CHOLESTYRAMINE/SUCROSE 4 GM/PACKET PO SCH ×3 (09:00→21:00)
[2018-05-25] MEDS: PANTOPRAZOLE SODIUM 40 MG/VIAL (PROTONIX) IVP SCH (09:02)
[2018-05-25 11:45] VITALS: BP_SYST 111
[2018-05-25] MEDS: MIDAZOLAM HCL 5 MG/5 ML VIAL ONE ×5 (12:30→13:53)
[2018-05-25] MEDS ORDERED: MIDAZOLAM HCL 5 MG/5 ML VIAL ONE (12:30)
[2018-05-25] MEDS: fentaNYL CITRATE/PF 100 MCG/2 ML AMP ONE ×3 (12:30→13:43)
[2018-05-25] MEDS ORDERED: SIMETHICONE 40 MG/0.6 ML ML ONE (12:31)
[2018-05-25] MEDS ORDERED: IOHEXOL 100 ML IV ONE (15:16)
[2018-05-25 16:00] VITALS: BP_SYST 114
[2018-05-25] MEDS ORDERED: DIPHENHYDRAMINE INJ 50 MG/ML VIAL ONE (16:10)
[2018-05-25 16:43] VITALS: BP_SYST 121
[2018-05-25] MEDS ORDERED: NITROGLYCERIN 0.4 MG TAB.SUBL SL PRN (18:00)
[2018-05-25 20:45] VITALS: BP_SYST 116
[2018-05-26] MEDS: D5NS 1,000 ML IV SCH ×2 (00:34→08:46)
[2018-05-26] MEDS: LORazepam 2 MG/ML VIAL IVP PRN (00:34)
[2018-05-26 00:37] VITALS: BP_SYST 110
[2018-05-26 07:29] LABS: BASOPHILS % (AUTO) 0.3 % (0.0-2.0); EOSINOPHILS # (AUTO) 0.3 K/uL (0.0-0.4); EOSINOPHILS % (AUTO) 5.8 % (0.0-4.0); HEMATOCRIT 38.3 % (36-48); LYMPHOCYTES # (AUTO) 1.5 K/uL (1.0-5.5); LYMPHOCYTES % (AUTO) 30.3 % (20.5-51.5); MEAN CORPUSCULAR HEMOGLOBIN 31 pg (27-31); MEAN CORPUSCULAR HGB CONC 34 % (32-36); MEAN CORPUSCULAR VOLUME 93 fL (79.0-98.0); MONOCYTES # (AUTO) 0.5 K/uL (0.0-1.0); MONOCYTES % (AUTO) 8.9 % (1.7-9.3); NEUTROPHILS # (AUTO) 2.8 K/uL (1.8-7.7); NEUTROPHILS % (AUTO) 54.7 % (40.0-70.0); PLATELET COUNT (AUTO) 225 K/uL (130-430); RED BLOOD CELL COUNT(AUTO) 4.14 MIL/uL (4.2-6.2); RED CELL DISTRIBUTION WIDTH 11.9 % (9.0-15.0); WHITE BLOOD COUNT (AUTO) 5.1 K/uL (4.8-10.8)
[2018-05-26 07:30] LABS: CALCIUM 7.7 mg/dL (8.4-11.0); CREATININE 0.61 mg/dL (0.55-1.30); POTASSIUM 3.2 mmol/L (3.5-5.1)
[2018-05-26 07:34] LABS: ALBUMIN 2.6 g/dL (3.4-4.8); TOTAL BILIRUBIN 0.5 mg/dL (0.0-1.0)
[2018-05-26 08:00] VITALS: BP_SYST 104
[2018-05-26] MEDS: PANTOPRAZOLE SODIUM 40 MG/VIAL (PROTONIX) IVP SCH (08:46)
[2018-05-26] MEDS: CHOLESTYRAMINE/SUCROSE 4 GM/PACKET PO SCH (08:47)
[2018-05-26] MEDS: LACTOBACILLUS RHAMNOSUS GG 1 CAP CAPSULE PO SCH (08:47)
[2018-05-26] MEDS ORDERED: POTASSIUM CHLORIDE 20 MEQ TAB.PRT.SR PO ONE (11:00)
[2018-05-26 12:17] VITALS: BP_SYST 111
[2018-05-26] MEDS ORDERED: MAG-AL HYDROX/SIMETH 30 ML UDC PO PRN (12:30)
[2018-05-26 12:51] VITALS: BP_SYST 111
[2018-05-26] MEDS ORDERED: SUCRALFATE 1 GM/10 ML UDC GT SCH (17:00)
== END 2018-05-26 15:17 | disposition home or self-care (01) | DRG 241 ==
LOC: SED 08:31 → SMU 12:35 → STU 05-25 17:38
PROVIDERS: ADMIT Internal Medicine Hospice and Palliative Medicine; ATTEND Internal Medicine Hospice and Palliative Medicine
PROC: 0DB78ZX Excision of Stomach, Pylorus, Via Natural or Artificial Opening Endoscopic, Diagnostic (ICD-10-PCS; principal; 2018-05-25 15:00)
DX: K29.70 Gastritis, unspecified, without bleeding (principal); E44.1 Mild protein-calorie malnutrition; N94.89 Other specified conditions associated with female genital organs and menstrual cycle; E11.9 Type 2 diabetes mellitus without complications; J45.909 Unspecified asthma, uncomplicated; F41.9 Anxiety disorder, unspecified; N83.209 Unspecified ovarian cyst, unspecified side; K91.5 Postcholecystectomy syndrome; Y83.6 Removal of other organ (partial) (total) as the cause of abnormal reaction of the patient, or of later complication, without mention of misadventure at the time of the procedure; Y92.89 Other specified places as the place of occurrence of the external cause; Z98.84 Bariatric surgery status; Z90.49 Acquired absence of other specified parts of digestive tract; Z88.8 Allergy status to other drugs, medicaments and biological substances; Z79.899 Other long term (current) drug therapy; Z90.710 Acquired absence of both cervix and uterus
CPT/HCPCS: 36415; 43239; 71260-TC; 76700-TC; 76830-TC; 76857; 80048; 80053; 80061; 81003; 82150-TC; 83690-TC; 83735-TC; 84484; 84703; 85025; 85610-TC; 85730-TC; 87081; 87230-TC; 88305; 88312; 88313; 93005; 93306; 96374; 96375; 96376; 99285; C9113; G0378; J1200; J1885; J2060; J2250; J2270; J2405; J2765; J3010; J7042; Q9967

== ENCOUNTER 2018-07-20 23:29 | Emergency (ER) | payer MEDICAID ==
[~2018-07-20] VITALS: Ht 152.4 cm; Wt 68.0 kg
[~2018-07-20 23:29] MED LIST changes: -AMOX-426 PO; +LORA-258 PO; -METR500T PO; +PRO40 PO
[2018-07-20 23:30] VITALS: BP_SYST 127
--- NOTE | 2018-07-21 00:12 | NUR ---
Patient to ER bed 1 to gown for evaluation. Side rails up. Report given to MARCELL RAMIREZ.
--- NOTE | 2018-07-21 00:15 | NUR ---
Pt C/O of sneezing, dry mouth, and watery eyes x 3 days. Today her symptoms worsend and is now C/O headache and dizziness. Pt states she took Tylenol and allergy medication with no relief. Vital signs are stable, will continue to monitor.
--- NOTE | 2018-07-21 00:26 | NUR ---
ER Dr. Carrasco at bedside examining patient.
--- NOTE | 2018-07-21 00:30 | NUR ---
Note shawneecindy in ED - 07/21/18 at 0132 by [email or web address] Patient's guardian given written and verbal discharge instructions and verbalizes understanding. ER discussed with patient's guardian the results and treatment provided. Patient in stable condition. ID arm band removed. Rx of Mineral Oil given. Patient's guardian educated on pain management, fever management, and to follow up with primary physician. Pain Scale/FLACC 0/10. Opportunity for questions provided and answered.Medication side effect fact sheet provided.
[2018-07-21] MEDS ORDERED: NACL 0.9% 1,000 ML IV ONE (00:45)
[2018-07-21] MEDS ORDERED: KETOROLAC TROMETHAMINE 30 MG VIAL IVP ONE (00:45)
[2018-07-21] MEDS ORDERED: PANTOPRAZOLE SODIUM 40 MG/VIAL (PROTONIX) IVP ONE (01:00)
--- NOTE | 2018-07-21 01:00 | NUR ---
Note shawneecindy in ED - 07/21/18 at 0133 by [email or web address] Patient's guardian given written and verbal discharge instructions and verbalizes understanding. ER discussed with patient's guardian the results and treatment provided. Patient in stable condition. ID arm band removed. Rx of Mineral Oil given. Patient's guardian educated on pain management, fever management, and to follow up with primary physician. Pain Scale/FLACC 0/10. Opportunity for questions provided and answered.Medication side effect fact sheet provided.
--- NOTE | 2018-07-21 01:00 | NUR ---
Pt is resting in bed, no acute distress noted at this time. Will continue to monitor
[2018-07-21 01:29] LABS: BASOPHILS % (AUTO) 0.7 % (0.0-2.0); EOSINOPHILS # (AUTO) 0.2 K/uL (0.0-0.4); EOSINOPHILS % (AUTO) 4.3 % (0.0-4.0); HEMATOCRIT 44.9 % (36-48); HEMOGLOBIN 15.6 g/dL (12.0-16.0); LYMPHOCYTES # (AUTO) 1.8 K/uL (1.0-5.5); LYMPHOCYTES % (AUTO) 32.2 % (20.5-51.5); MEAN CORPUSCULAR HEMOGLOBIN 32 pg (27-31); MEAN CORPUSCULAR HGB CONC 35 % (32-36); MEAN CORPUSCULAR VOLUME 92 fL (79.0-98.0); MONOCYTES # (AUTO) 0.5 K/uL (0.0-1.0); NEUTROPHILS % (AUTO) 53.8 % (40.0-70.0); PLATELET COUNT (AUTO) 279 K/uL (130-430); RED BLOOD CELL COUNT(AUTO) 4.86 MIL/uL (4.2-6.2); RED CELL DISTRIBUTION WIDTH 12.8 % (9.0-15.0); WHITE BLOOD COUNT (AUTO) 5.6 K/uL (4.8-10.8)
[2018-07-21 01:45] VITALS: BP_SYST 127
[2018-07-21 01:50] LABS: CALCIUM 9.1 mg/dL (8.4-11.0); CREATININE 0.56 mg/dL (0.55-1.30); POTASSIUM 3.6 mmol/L (3.5-5.1)
--- NOTE | 2018-07-21 02:03 | NUR ---
Patient given written and verbal discharge instructions and verbalizes understanding. ER MD discussed with patient the results and treatment provided. Patient in stable condition. ID arm band removed. IV catheter removed intact and dressing applied, no active bleeding. Rx of Promethazine and Motrin given. Patient educated on pain management and to follow up with PMD. Pain Scale 0/10. Opportunity for questions provided and answered. Medication side effect fact sheet provided.
== END 2018-07-21 02:03 | disposition home or self-care (01) ==
LOC: SED 23:29
DX: J06.9 Acute upper respiratory infection, unspecified (principal); F41.9 Anxiety disorder, unspecified; Z86.2 Personal history of diseases of the blood and blood-forming organs and certain disorders involving the immune mechanism; Z88.8 Allergy status to other drugs, medicaments and biological substances
CPT/HCPCS: 36415; 71045; 80048; 85025; 86710; 96361; 96374; 96375; 99284; C9113; J1885; J7030

== ENCOUNTER 2018-08-18 11:28 | Emergency (ER) | payer MEDICAID ==
[~2018-08-18] VITALS: Ht 154.9 cm; Wt 68.0 kg
[2018-08-18 11:28] VITALS: BP_SYST 128
--- NOTE | 2018-08-18 11:28 | NUR ---
Placed in room 02 . Placed on manager cardiac cath, blood pressure machine and pulse oximeter. To gown for exam. Side rails up.
--- NOTE | 2018-08-18 11:30 | NUR ---
EKG DONE AT BEDSIDE
--- NOTE | 2018-08-18 11:32 | NUR ---
Pt AAOx4 ambulated into ED c/o intermittent mid chest pain radiating to L chest since 3 am with worsening symptoms prior to arrival. Pt denies N/V/D, but reports difficulty breathing. SaO2 99% on RA. No other injuries/complaints per pt/noted. Will continue to monitor.
--- NOTE | 2018-08-18 11:52 | NUR ---
JEFF Humphrey at bedside examining patient.
[2018-08-18] MEDS: ASPIRIN 81 MG TAB.CHEW PO ONE (12:32)
[2018-08-18 12:43] LABS: BASOPHILS % (AUTO) 0.7 % (0.0-2.0); EOSINOPHILS # (AUTO) 0.2 K/uL (0.0-0.4); EOSINOPHILS % (AUTO) 3.4 % (0.0-4.0); HEMATOCRIT 46.3 % (36-48); HEMOGLOBIN 15.9 g/dL (12.0-16.0); LYMPHOCYTES # (AUTO) 1.9 K/uL (1.0-5.5); LYMPHOCYTES % (AUTO) 32.5 % (20.5-51.5); MEAN CORPUSCULAR HEMOGLOBIN 32 pg (27-31); MEAN CORPUSCULAR HGB CONC 35 % (32-36); MEAN CORPUSCULAR VOLUME 92 fL (79.0-98.0); MONOCYTES # (AUTO) 0.4 K/uL (0.0-1.0); NEUTROPHILS # (AUTO) 3.3 K/uL (1.8-7.7); NEUTROPHILS % (AUTO) 56.4 % (40.0-70.0); PLATELET COUNT (AUTO) 243 K/uL (130-430); RED BLOOD CELL COUNT(AUTO) 5.02 MIL/uL (4.2-6.2); RED CELL DISTRIBUTION WIDTH 13.2 % (9.0-15.0); WHITE BLOOD COUNT (AUTO) 5.8 K/uL (4.8-10.8)
[2018-08-18 12:45] LABS: CALCIUM 9.3 mg/dL (8.4-11.0); CREATININE 0.69 mg/dL (0.55-1.30); POTASSIUM 3.9 mmol/L (3.5-5.1)
[2018-08-18 12:50] LABS: ALBUMIN 3.7 g/dL (3.4-4.8); TOTAL BILIRUBIN 0.7 mg/dL (0.0-1.0)
[2018-08-18 13:33] VITALS: BP_SYST 128
--- NOTE | 2018-08-18 13:33 | NUR ---
Patient given written and verbal discharge instructions and verbalizes understanding. ER MD discussed with patient the results and treatment provided. Patient in stable condition. ID arm band removed. IV catheter removed intact and dressing applied, no active bleeding. Rx of given. Patient educated on pain management and to follow up with PMD. Pain Scale 0/10. Opportunity for questions provided and answered. Medication side effect fact sheet provided.
== END 2018-08-18 13:33 | disposition home or self-care (01) ==
LOC: SED 11:28
DX: R07.89 Other chest pain (principal); F41.9 Anxiety disorder, unspecified; R11.0 Nausea; R03.0 Elevated blood-pressure reading, without diagnosis of hypertension; Z86.2 Personal history of diseases of the blood and blood-forming organs and certain disorders involving the immune mechanism; Z90.89 Acquired absence of other organs; Z90.710 Acquired absence of both cervix and uterus; Z88.8 Allergy status to other drugs, medicaments and biological substances; Z79.899 Other long term (current) drug therapy
CPT/HCPCS: 36415; 71045; 80053; 82550-TC; 82962; 84484; 85025; 93005; 99284

== ENCOUNTER 2018-09-27 21:02 | Emergency (ER) | payer BC, MEDICAID ==
[~2018-09-27] VITALS: Ht 152.4 cm; Wt 70.3 kg
[2018-09-27 21:03] VITALS: BP_SYST 136
[2018-09-27] MEDS ORDERED: NACL 0.9% 1,000 ML IV ONE (21:38)
[2018-09-27] MEDS ORDERED: DIPHENHYDRAMINE INJ 50 MG/ML VIAL IVP ONE ×2 (21:45→23:30)
[2018-09-27] MEDS ORDERED: ONDANSETRON HCL 4 MG/2 ML VIAL IVP ONE (21:45)
[2018-09-27] MEDS ORDERED: MORPHINE 4 MG/ML INJ. SYRINGE IVP ONE ×2 (21:45→23:30)
[2018-09-27 22:21] LABS: BASOPHILS # (AUTO) 0.1 K/uL (0.0-0.2); BASOPHILS % (AUTO) 0.5 % (0.0-2.0); EOSINOPHILS # (AUTO) 0.2 K/uL (0.0-0.4); EOSINOPHILS % (AUTO) 1.8 % (0.0-4.0); HEMATOCRIT 46.3 % (36-48); HEMOGLOBIN 15.9 g/dL (12.0-16.0); LYMPHOCYTES # (AUTO) 2.4 K/uL (1.0-5.5); LYMPHOCYTES % (AUTO) 23.9 % (20.5-51.5); MEAN CORPUSCULAR HEMOGLOBIN 32 pg (27-31); MEAN CORPUSCULAR HGB CONC 34 % (32-36); MEAN CORPUSCULAR VOLUME 93 fL (79.0-98.0); MONOCYTES # (AUTO) 0.8 K/uL (0.0-1.0); MONOCYTES % (AUTO) 7.6 % (1.7-9.3); NEUTROPHILS # (AUTO) 6.6 K/uL (1.8-7.7); NEUTROPHILS % (AUTO) 66.2 % (40.0-70.0); PLATELET COUNT (AUTO) 276 K/uL (130-430); RED CELL DISTRIBUTION WIDTH 13.3 % (9.0-15.0); WHITE BLOOD COUNT (AUTO) 9.9 K/uL (4.8-10.8)
[2018-09-27 22:26] LABS: BILIRUBIN,URINE NEGATIVE (NEGATIVE); BLOOD, URINE NEGATIVE (NEGATIVE); CLARITY/URINE CLEAR (CLEAR); GLUCOSE,URINE NEGATIVE (NEGATIVE); KETONES,URINE NEGATIVE (NEGATIVE); LEUKOCYTE ESTERASE ,URINE NEGATIVE (NEGATIVE); NITRITE, URINE NEGATIVE (NEGATIVE); PH,URINE 5.5 (5.0-8.0); PROTEIN URINE NEGATIVE (NEGATIVE); UROBILINOGEN,URINE 0.2 (0.2-1.0)
[2018-09-27 22:44] LABS: COLOR,URINE STRAW (YELLOW)
[2018-09-27 23:10] LABS: CALCIUM 9.2 mg/dL (8.4-11.0); CREATININE 0.67 mg/dL (0.55-1.30); POTASSIUM 3.4 mmol/L (3.5-5.1)
[2018-09-27 23:19] LABS: ALBUMIN 3.6 g/dL (3.4-4.8); TOTAL BILIRUBIN 0.6 mg/dL (0.0-1.0)
[2018-09-28] MEDS ORDERED: MORPHINE 4 MG/ML INJ. SYRINGE IVP ONE (00:45)
[2018-09-28] MEDS ORDERED: KETOROLAC TROMETHAMINE 30 MG VIAL IVP ONE (00:45)
[2018-09-28] MEDS ORDERED: ONDANSETRON HCL 4 MG/2 ML VIAL IVP ONE (00:45)
[2018-09-28 01:25] VITALS: BP_SYST 120
== END 2018-09-28 01:47 | disposition home or self-care (01) ==
LOC: SED 21:02
DX: R10.31 Right lower quadrant pain (principal); R03.0 Elevated blood-pressure reading, without diagnosis of hypertension; F41.9 Anxiety disorder, unspecified; E78.00 Pure hypercholesterolemia, unspecified; Z86.2 Personal history of diseases of the blood and blood-forming organs and certain disorders involving the immune mechanism; Z90.89 Acquired absence of other organs; Z90.710 Acquired absence of both cervix and uterus; Z88.8 Allergy status to other drugs, medicaments and biological substances; Z79.899 Other long term (current) drug therapy
CPT/HCPCS: 36415; 71045; 74176; 76830; 76857; 80053; 81003; 83690; 83880; 84484; 85025; 93005; 96374; 96375; 96376; 99284; J1200; J1885; J2270 ×2; J2405 ×2; J7030

== ENCOUNTER 2018-11-15 14:18 | Inpatient (IN) | payer BC, MEDICAID ==
[~2018-11-15] VITALS: Ht 152.4 cm; Wt 68.0 kg
[2018-11-15 14:20] VITALS: BP_SYST 105
--- NOTE | 2018-11-15 14:28 | NUR ---
Placed in room 04 . Placed on registered nurse cardiac telemetry, blood pressure machine and pulse oximeter. To gown for exam. Side rails up.
--- NOTE | 2018-11-15 14:35 | NUR ---
Pt arrived to ED via ambulation, with complaints of chest pain and bilateral arm numbness x 2 days. Pt denies any N/V/D. Pt is displaying facial symmetry.
[2018-11-15] MEDS ORDERED: ONDANSETRON HCL 4 MG/2 ML VIAL IVP ONE (15:00)
[2018-11-15] MEDS ORDERED: AMIODARONE HCL 150 MG in D5W 97 ML IV ONE (15:00)
[2018-11-15] MEDS ORDERED: MORPHINE 2 MG/ML INJ. SYRINGE IVP ONE (15:00)
[2018-11-15 15:06] LABS: BASOPHILS % (AUTO) 0.7 % (0.0-2.0); EOSINOPHILS # (AUTO) 0.1 K/uL (0.0-0.4); EOSINOPHILS % (AUTO) 2.1 % (0.0-4.0); HEMATOCRIT 45.6 % (36-48); HEMOGLOBIN 15.4 g/dL (12.0-16.0); LYMPHOCYTES # (AUTO) 1.6 K/uL (1.0-5.5); MEAN CORPUSCULAR HEMOGLOBIN 32 pg (27-31); MEAN CORPUSCULAR HGB CONC 34 % (32-36); MEAN CORPUSCULAR VOLUME 94 fL (79.0-98.0); MONOCYTES # (AUTO) 0.4 K/uL (0.0-1.0); MONOCYTES % (AUTO) 6.9 % (1.7-9.3); NEUTROPHILS % (AUTO) 64.3 % (40.0-70.0); PLATELET COUNT (AUTO) 258 K/uL (130-430); RED BLOOD CELL COUNT(AUTO) 4.84 MIL/uL (4.2-6.2); RED CELL DISTRIBUTION WIDTH 13.6 % (9.0-15.0); WHITE BLOOD COUNT (AUTO) 6.3 K/uL (4.8-10.8)
--- NOTE | 2018-11-15 15:10 | NUR ---
PATIENT LEAVING TO CT VIA GURNEY IN STABLE CONDITION.
--- NOTE | 2018-11-15 15:20 | NUR ---
Pt returning from CT on stable condition.
[2018-11-15 15:24] LABS: CALCIUM 9.1 mg/dL (8.4-11.0); CREATININE 0.76 mg/dL (0.55-1.30); POTASSIUM 3.5 mmol/L (3.5-5.1)
[2018-11-15 15:29] LABS: ALBUMIN 3.4 g/dL (3.4-4.8); TOTAL BILIRUBIN 0.6 mg/dL (0.0-1.0)
[2018-11-15 16:06] LABS: PROTHROMBIN TIME 10.1 SECS (9.5-12.5)
[2018-11-15] MEDS ORDERED: ASPIRIN 325 MG TABLET PO ONE (16:30)
--- NOTE | 2018-11-15 16:49 | NUR ---
Patient resting quietly. No acute distress noted. Vital signs within normal range.
--- NOTE | 2018-11-15 17:32 | NUR ---
Medication reconciliation completed with information provided by patient . Any prior medication reconciliation on file was reviewed and corrected.
--- NOTE | 2018-11-15 17:39 | NUR ---
Tele Spoke to Christal to get room assignment.
[2018-11-15] MEDS ORDERED: LORazepam 2 MG/ML VIAL (FOR ER USE) IVP ONE (18:15)
--- NOTE | 2018-11-15 18:25 | NUR ---
ADMISSION NOTE Received patient from ER via mary jo, received report from Abiola RAMIREZ. Patient admitted with diagnosis of Chest pain]. Patient oriented to hospital routine, call light, toileting and safety-patient verbalized understanding.
--- NOTE | 2018-11-15 18:27 | NUR ---
Patient will be admitted to care of Dr. Solorio. Admitted to TELE unit. Will go to room 117-B. Belongings list completed. Summary report printed. Report given at bedside to Rylee RAMIREZ .
[2018-11-15 18:30] VITALS: BP_SYST 123
--- NOTE | 2018-11-15 18:30 | NUR ---
OPENING NOTE PATIENT RECEIVED FROM ER SAYRA, PATIENT IS A&OX4, PATIENT ABLE TO AMBULATE TO BATHROOM FOR URINATION, PATIENT DENIES ANY ACUTE DISTRESS, PATIENT STATING SHE IS STILL HAVING SOME CHEST PAIN, EDUCATED PATIENT ON PLAN OF CARE AND CALL LIGHT SYSTEM, WILL CONTINUE TO MONITOR, SAFETY PRECAUTIONS IN PLACE, CALL LIGHT WITHIN REACH.
--- NOTE | 2018-11-15 19:24 | NUR ---
OPENING NOTES Pt and endorsement received from day shift nurse. Pt is AAOX4, lying in bed. Pt on saline lock on left hand G22. No complains of pain or discomfort at this time. No signs of acute distress or SOB noted. Encouraged to use call light when needed. Safety precautions in place with 2 side rails up, wheels locked and bed in lowest level. Call light with pt. Will continue to monitor.
[2018-11-15 20:48] VITALS: BP_SYST 121
--- NOTE | 2018-11-15 21:20 | NUR ---
SPOKE TO DR. JONES Spoke to Dr. Jones regarding pt complaining of pain on her left lateral chest with a scale of 7/10. Pt also said she needs her Ativan for anxiety and takes 0.5mg at home. Dr. Jones ordered Nitroglycerine 0.4mg SL Q5mins PRN for 3 doses and Ativan 0.5mg PO daily PRN. Read back orders and will carry out.
[2018-11-15] MEDS: NITROGLYCERIN 0.4 MG TAB.SUBL SL PRN ×2 (21:36→21:48)
--- NOTE | 2018-11-15 21:36 | NUR ---
NITROGLYCERINE 0.4MG GIVEN Pt still complains of pain on left lateral chest with a scale of 7/10. Nitroglycerine 0.4mg SL given as ordered. Educated on side effects like headache and dizziness. Will continue to monitor.
--- NOTE | 2018-11-15 21:48 | NUR ---
NITROGLYCERINE 0.4MG GIVEN Pt still complains of pain on left lateral chest with a scale of 6/10. Second dose of Nitroglycerin 0.4mg SL given as ordered. Will continue to monitor.
--- NOTE | 2018-11-15 21:53 | NUR ---
THIRD DOSE OF NITROGLYCERIN REFUSED Pt states she is having a headache. Reeducated pt that it is a side effect of the medication and so she said "I don't want another dose." Vital signs rechecked and recorded. Will continue to monitor.
[2018-11-15 21:54] VITALS: BP_SYST 116
[2018-11-15] MEDS: LORazepam 1 MG TABLET PO PRN (23:47)
--- NOTE | 2018-11-15 23:47 | NUR ---
ROUNDS Pt asked for Ativan and states "I need the medicine to calm me down." When I got the Ativan 1mg PO and halfed it to give 0.5mg, the pt did not want it and said "I want the IV." Explained to pt that it was the doctor's order but pt still insists on the IV since IV was given to her in the ER. Wasted the Ativan in med room with the witness of ASHLEY Razo. Osbaldo barron MD.
--- NOTE | 2018-11-16 00:07 | NUR ---
SPOKE TO DR. JONES Spoke to Dr. Jones regarding pt wanting the Ativan in IV but doctor said no and not to change the order. Will inform pt.
[2018-11-16] MEDS: LORazepam 1 MG TABLET PO PRN (00:12)
--- NOTE | 2018-11-16 00:12 | NUR ---
ATIVAN 0.5MG GIVEN Explained to pt that MD does not want to change the medication to IV at this time. Pt said "I don't have a choice." Ativan 0.5mg PO given for anxiety. No signs of acute distress noted. Tisha and ulises provided per pt's request. Safety precautions in place and call light with pt. Will continue to monitor.
[2018-11-16 01:51] VITALS: BP_SYST 112
--- NOTE | 2018-11-16 02:30 | NUR ---
ROUNDS Pt is resting in bed with both eyes closed, with visible chest rise and fall with unlabored breathing noted. No complains of pain and no signs of acute distress noted. No needs at this time. Safety precautions in place and call light with pt. Will continue to monitor.
--- NOTE | 2018-11-16 04:28 | NUR ---
ROUNDS Pt is resting in bed with both eyes closed, with visible chest rise and fall with unlabored breathing noted. No signs of acute distress noted. No needs at this time. Will continue to monitor.
--- NOTE | 2018-11-16 06:35 | NUR ---
CLOSING NOTES Pt is resting in bed with both eyes closed, with visible chest rise and fall with unlabored breathing noted. No signs of acute distress or SOB noted. No complains of pain or discomfort at this time. All needs attended throughout the shift. Safety precautions maintained with 2 side rails up, wheels locked, bed in lowest level. Will endorse to day shift nurse.
[2018-11-16 08:01] VITALS: BP_SYST 116
--- NOTE | 2018-11-16 08:07 | NUR ---
OPENING NOTE patient received resting in bed with eyes closed, patient is easily arousable to name, patient denies any acute distress or pain, breathing is even and unlabored on room air, educated patient on plan of care and call light system, will continue to monitor, safety precautions in place, call light within reach.
--- NOTE | 2018-11-16 10:41 | NUR ---
NOTES patient is resting in bed A&O x4, patient denies any acute distress or pain, patient states she just wants ice chips at this time, patient tolerated breakfast well, will continue to monitor, safety precautions in place, call light within reach.
[2018-11-16 12:00] VITALS: BP_SYST 93
--- NOTE | 2018-11-16 12:50 | NUR ---
NOTES patient is resting in bed A&O x4, patient denies any acute distress, patient states she is just waiting for the television news producer, breathing is even and unlabored on room air, will continue to monitor, safety precautions in place, call light within reach.
--- NOTE | 2018-11-16 14:01 | NUR ---
CONSULT REASON FOR CONSULT: RIGHT HAND NUMBNESS PERSON I SPOKE WITH: SERGEI CONSULTING PHYSICIAN: DR. FLOWERS COAL SHOOTER PHONE NUMBER: [phone] ORDERING PHYSICIAN: DR. ROBERT Borja
--- NOTE | 2018-11-16 14:04 | NUR ---
CONSULT REASON FOR CONSULT: CHEST PAIN PERSON I SPOKE WITH: ALISA CONSULTING PHYSICIAN: Karl OCHOA BLOOD TESTER PHONE NUMBER: [phone] ORDERING PHYSICIAN: Huong OCHOA
--- NOTE | 2018-11-16 14:15 | NUR ---
NOTES patient is resting in bed talking on the phone, patient denies any acute distress or pain, breathing is even and unlabored on room air, will continue to monitor, safety precautions in place, call light within reach.
[2018-11-16] MEDS ORDERED: ONDANSETRON HCL 4 MG/2 ML VIAL IVP PRN (15:00)
[2018-11-16] MEDS ORDERED: HYDROcodone/ACETAMIN 5-325 MG TAB (NORCO/ VICODIN) PO PRN (15:00)
[2018-11-16] MEDS ORDERED: HYDROcodone/ACETAMIN 10-325 MG TAB PO PRN (15:00)
[2018-11-16] MEDS ORDERED: ACETAMINOPHEN 325 MG TABLET PO PRN (15:00)
[2018-11-16] MEDS: LORazepam 1 MG TABLET PO SCH ×2 (15:18→20:50)
[2018-11-16 15:51] VITALS: BP_SYST 101
[2018-11-16 16:02] LABS: ANION GAP 8 (5-15); CALCIUM 8.9 mg/dL (8.4-11.0); CHLORIDE 106 mmol/L (98-107); CREATININE 0.62 mg/dL (0.55-1.30); GLUCOSE 102 mg/dL (70-99); POTASSIUM 3.6 mmol/L (3.5-5.1); SODIUM SERUM 140 mmol/L (136-145); UREA NITROGEN, BLOOD 13 mg/dL (8-21)
[2018-11-16 16:06] LABS: BASOPHILS % (AUTO) 0.6 % (0.0-2.0); EOSINOPHILS # (AUTO) 0.1 K/uL (0.0-0.4); EOSINOPHILS % (AUTO) 2.3 % (0.0-4.0); GFR AFRICAN AMERICAN 130 mL/min (>90); HEMATOCRIT 45.3 % (36-48); HEMOGLOBIN 15.2 g/dL (12.0-16.0); LYMPHOCYTES # (AUTO) 1.7 K/uL (1.0-5.5); LYMPHOCYTES % (AUTO) 27.1 % (20.5-51.5); MEAN CORPUSCULAR HEMOGLOBIN 32 pg (27-31); MEAN CORPUSCULAR HGB CONC 34 % (32-36); MEAN CORPUSCULAR VOLUME 95 fL (79.0-98.0); MONOCYTES # (AUTO) 0.5 K/uL (0.0-1.0); MONOCYTES % (AUTO) 7.5 % (1.7-9.3); NEUTROPHILS % (AUTO) 62.5 % (40.0-70.0); PLATELET COUNT (AUTO) 245 K/uL (130-430); RED BLOOD CELL COUNT(AUTO) 4.79 MIL/uL (4.2-6.2); RED CELL DISTRIBUTION WIDTH 13.5 % (9.0-15.0); WHITE BLOOD COUNT (AUTO) 6.4 K/uL (4.8-10.8)
--- NOTE | 2018-11-16 16:20 | NUR ---
NOTES patient is resting in bed calm at this time, patient given snacks, breathing is even and unlabored on room air, family is at bedside, will continue to monitor, safety precautions in place, call light within reach.
--- NOTE | 2018-11-16 18:50 | NUR ---
CLOSING NOTE patient is resting in bed A&O x4, patient is calm at this time, breathing is even and unlabored on room air, all needs were met throughout shift, will endorse report to oncoming nurse, safety precautions in place, call light within reach, family at bedside.
--- NOTE | 2018-11-16 19:21 | NUR ---
OPENING NOTES Pt and endorsement received from day shift nurse. Pt is AAOX4, lying in bed. Family at bedside. Pt on saline lock on left hand G22. No complains of pain or discomfort at this time. No signs of acute distress or SOB noted. Encouraged to use call light when needed. Safety precautions in place with 2 side rails up, wheels locked and bed in lowest level. Call light with pt. Will continue to monitor.
--- NOTE | 2018-11-16 19:48 | NUR ---
TYLENOL 650MG GIVEN Pt complained of headache. Tylenol 650mg PO given as ordered. No signs of acute distress noted. Safety precautions in place and call light with pt. Will continue to monitor.
[2018-11-16 20:22] VITALS: BP_SYST 130
[2018-11-16] MEDS: NORMAL SALINE 5 ML DISP.SYRIN IVF SCH ×2 (21:04)
[2018-11-16 23:05] VITALS: BP_SYST 110
--- NOTE | 2018-11-17 01:39 | NUR ---
ROUNDS Pt is resting in bed with both eyes closed, with visible chest rise and fall with unlabored breathing noted. Pt is stable and not in distress. Safety precautions in place and call light with pt. Will continue to monitor.
[2018-11-17] MEDS: NORMAL SALINE 5 ML DISP.SYRIN IVF SCH ×4 (05:20→14:37)
--- NOTE | 2018-11-17 06:25 | NUR ---
CLOSING NOTES Pt is resting in bed with both eyes closed, with visible chest rise and fall with unlabored breathing noted. No signs of acute distress or SOB noted. No complains of pain or discomfort at this time. All needs attended throughout the shift. Safety precautions maintained with 2 side rails up, wheels locked, bed in lowest level. Call light with pt. Will endorse to day shift nurse.
[2018-11-17 06:43] LABS: BASOPHILS % (AUTO) 0.6 % (0.0-2.0); EOSINOPHILS # (AUTO) 0.2 K/uL (0.0-0.4); EOSINOPHILS % (AUTO) 3.2 % (0.0-4.0); HEMATOCRIT 45.2 % (36-48); HEMOGLOBIN 15.4 g/dL (12.0-16.0); LYMPHOCYTES # (AUTO) 2.5 K/uL (1.0-5.5); LYMPHOCYTES % (AUTO) 36.9 % (20.5-51.5); MEAN CORPUSCULAR HEMOGLOBIN 32 pg (27-31); MEAN CORPUSCULAR HGB CONC 34 % (32-36); MEAN CORPUSCULAR VOLUME 94 fL (79.0-98.0); MONOCYTES # (AUTO) 0.5 K/uL (0.0-1.0); MONOCYTES % (AUTO) 7.6 % (1.7-9.3); NEUTROPHILS # (AUTO) 3.5 K/uL (1.8-7.7); NEUTROPHILS % (AUTO) 51.7 % (40.0-70.0); PLATELET COUNT (AUTO) 246 K/uL (130-430); RED BLOOD CELL COUNT(AUTO) 4.79 MIL/uL (4.2-6.2); RED CELL DISTRIBUTION WIDTH 13.3 % (9.0-15.0); WHITE BLOOD COUNT (AUTO) 6.9 K/uL (4.8-10.8)
[2018-11-17 07:05] LABS: CALCIUM 9.1 mg/dL (8.4-11.0); CREATININE 0.69 mg/dL (0.55-1.30); POTASSIUM 3.7 mmol/L (3.5-5.1)
--- NOTE | 2018-11-17 07:40 | NUR ---
INITIAL NOTE RECEIVED PT IN BED, NO S/S OF DISTRESS OR SOB NOTED, PT HAS NO C/O PAIN AT THIS TIME, PT IN STABLE CONDITION. PT AAOX4, VERBAL, IV CATHETER PATENT, NO SIGNS OF INFECTION OR INFILTRATION NOTED, SALINE LOCK. BED AT LOWEST POSITION, CALL LIGHT WITHIN REACH, WILL CONTINUE TO MONITOR PT FOR ANY CHANGES, SAFETY PRECAUTIONS IN PLACE.
[2018-11-17 08:20] VITALS: BP_SYST 120
[2018-11-17] MEDS: LORazepam 1 MG TABLET PO SCH ×2 (08:54→15:00)
--- NOTE | 2018-11-17 10:10 | NUR ---
ROUNDS PT IN BED, NO S/S OF DISTRESS OR SOB, PT RESTING COMFORTABLY, PT IN STABLE CONDITION. WILL CONTINUE TO MONITOR PT FOR ANY CHANGES. NO C/O PAIN. PT WATCHING TV.
--- NOTE | 2018-11-17 10:50 | NUR ---
CHEST PAIN PT C/O PAIN ON LEFT CHEST, 5/10, FEELS PRESSURE BUT UNSURE IF IT IS PAIN OR ANXIETY. VSS, 98.6, 118/88, 76, 96% ON ROOM AIR, NO RADIATION OF PAIN. ADMINISTERED PRN NORCO AND WILL CONTINUE TO MONITOR.
[2018-11-17 11:20] VITALS: BP_SYST 109
--- NOTE | 2018-11-17 12:58 | NUR ---
ROUNDS PT IN BED, NO S/S OF DISTRESS OR SOB, PT RESTING COMFORTABLY, PT IN STABLE CONDITION. WILL CONTINUE TO MONITOR PT FOR ANY CHANGES. NO C/O PAIN. PT ON HER PHONE.
--- NOTE | 2018-11-17 14:04 | NUR ---
PAGED PAGED CAROLINA MARTE AT [phone] SPOKE WITH MITUL.
--- NOTE | 2018-11-17 14:22 | NUR ---
MD EZE LUJAN CHARGE NURSE SPOKE WITH OBSTETRICS NURSE, ROBERT Barajas. PER SHE CAN BE D/C FROM [facility].
--- NOTE | 2018-11-17 14:33 | NUR ---
MD CALL SPOKE WITH DR FLOWERS AND MADE HIM AWARE OF THE RESULTS OF THE MRI BRAIN AND CAROTID ULTRASOUND, PER MD TO HAVE PT FOLLOW UP IN THREE WEEKS WITH HIM, OK TO D/C HOME.
--- NOTE | 2018-11-17 14:34 | NUR ---
ROUNDS PT IN BED TALKING ON HER PHONE, NO S/S OF DISTRESS OR SOB, PT RESTING COMFORTABLY, PT IN STABLE CONDITION. WILL CONTINUE TO MONITOR PT FOR ANY CHANGES. NO C/O PAIN.
[2018-11-17 14:37] VITALS: BP_SYST 118
[2018-11-17 15:25] VITALS: BP_SYST 119
--- NOTE | 2018-11-17 16:55 | NUR ---
D/C Patient Patient given medication reconciliation form and D/C instructions. Exit Care provided. Patient verbalized understanding. MD discussed with patient the results and treatment provided. Ambulatory with steady gait for discharge to home. Patient in stable condition, ID band removed. IV catheter removed, intact and dressing applied, no active bleeding. Patient educated on pain management. All belongings sent with patient. Addendum: 11/17/18 at 1707 by Susi Villegas RN transition of care
== END 2018-11-17 16:55 | disposition home or self-care (01) | DRG 313 ==
LOC: SED 14:18 → STU 17:26
PROVIDERS: ADMIT Preventive Medicine Preventive Medicine/Occupational Environmental Medicine; ATTEND Preventive Medicine Preventive Medicine/Occupational Environmental Medicine
DX: R07.89 Other chest pain (principal); E78.00 Pure hypercholesterolemia, unspecified; F41.9 Anxiety disorder, unspecified; R53.1 Weakness; I10 Essential (primary) hypertension; Z88.8 Allergy status to other drugs, medicaments and biological substances; Z79.899 Other long term (current) drug therapy
CPT/HCPCS: 36415; 70450-TC; 70551; 71045; 80048; 80053; 83735-TC; 83880; 84484; 85025; 85610-TC; 93005; 93880; 96374; 96375; 99285; G0378; J2060; J2270; J2405

== ENCOUNTER 2018-12-09 05:18 | Emergency (ER) | payer BC, MEDICAID ==
[~2018-12-09] VITALS: Ht 152.4 cm; Wt 68.0 kg
[~2018-12-09 05:18] MED LIST changes: -PRO40 PO
[2018-12-09 05:31] VITALS: BP_SYST 127
[2018-12-09] MEDS ORDERED: LORazepam 2 MG/ML VIAL (FOR ER USE) IM ONE (05:45)
[2018-12-09 06:22] VITALS: BP_SYST 118
== END 2018-12-09 06:22 | disposition home or self-care (01) ==
LOC: SED 05:18
DX: F41.0 Panic disorder [episodic paroxysmal anxiety] (principal); R03.0 Elevated blood-pressure reading, without diagnosis of hypertension; E78.00 Pure hypercholesterolemia, unspecified; Z86.2 Personal history of diseases of the blood and blood-forming organs and certain disorders involving the immune mechanism
CPT/HCPCS: 96372; 99283; J2060

== ENCOUNTER 2018-12-26 10:37 | Emergency (ER) | payer BC, MEDICAID ==
[~2018-12-26] VITALS: Ht 152.4 cm; Wt 68.0 kg
[2018-12-26 10:37] VITALS: BP_SYST 132
--- NOTE | 2018-12-26 10:37 | NUR ---
Placed in room 08. Placed on groundwater monitoring technician, blood pressure machine and pulse oximeter. To gown for exam. Side rails up.
--- NOTE | 2018-12-26 11:00 | NUR ---
ER at bedside examining patient.
--- NOTE | 2018-12-26 11:00 | NUR ---
53 YEAR OLD FEMALE PATIENT DROVE SELF TO ER, AMBULATED TO ER BED 8. PT STATES SHE HAS NAUSEA, AND NEW ONSET OF LEFT SIDED CHEST PAIN 7/10 WITH A SHARP QUALITY RADIATING TO THE RIGHT MIDAXILLARY 4TH INTERCOSTAL AREA. PT STATES THAT SHE HAS BEEN SICK FOR 2-3 WEEKS AND WAS DIAGNOSED WITH BRONCHITIS BY HER PRIMARY CARE PROVIDER AFTER HER VISIT TO [facility] ON 12/09. PT STATES SHE HAS FINISHED HER ANTIBIOTICS AT HOME. PT DENIES SOB, VOMITING, DIZZINESS, BLURRED VISION. PT STATES SHE HAS HX OF ANXIETY AND TAKES ATIVAN AT HOME. PT STATES NO OTHER COMPLAINT AT THIS TIME. PT RESTING IN BED COMFORTABLY. WILL CONTINUE TO MONITOR
[2018-12-26 11:29] LABS: BASOPHILS # (AUTO) 0.1 K/uL (0.0-0.2); BASOPHILS % (AUTO) 0.9 % (0.0-2.0); EOSINOPHILS # (AUTO) 0.2 K/uL (0.0-0.4); EOSINOPHILS % (AUTO) 3.5 % (0.0-4.0); HEMATOCRIT 42.3 % (36-48); HEMOGLOBIN 14.8 g/dL (12.0-16.0); MEAN CORPUSCULAR HEMOGLOBIN 33 pg (27-31); MEAN CORPUSCULAR HGB CONC 35 % (32-36); MEAN CORPUSCULAR VOLUME 95 fL (79.0-98.0); MONOCYTES # (AUTO) 0.5 K/uL (0.0-1.0); MONOCYTES % (AUTO) 7.9 % (1.7-9.3); NEUTROPHILS % (AUTO) 58.7 % (40.0-70.0); PLATELET COUNT (AUTO) 244 K/uL (130-430); RED BLOOD CELL COUNT(AUTO) 4.47 MIL/uL (4.2-6.2); WHITE BLOOD COUNT (AUTO) 6.7 K/uL (4.8-10.8)
[2018-12-26] MEDS: KETOROLAC TROMETHAMINE 60 MG/2 ML VIAL IM ONE (11:30)
[2018-12-26 11:39] LABS: CALCIUM 8.9 mg/dL (8.4-11.0); CREATININE 0.61 mg/dL (0.55-1.30); POTASSIUM 3.3 mmol/L (3.5-5.1)
[2018-12-26 11:45] LABS: ALBUMIN 3.2 g/dL (3.4-4.8); TOTAL BILIRUBIN 0.5 mg/dL (0.0-1.0)
--- NOTE | 2018-12-26 12:27 | NUR ---
Received report from ASHLEY Alejo. Pt is resting in bed comfortable, no acute distress noted.
--- NOTE | 2018-12-26 12:44 | NUR ---
Patient given written and verbal discharge instructions and verbalizes understanding. ER MD discussed with patient the results and treatment provided. Patient in stable condition. ID arm band removed. Rx of Cepacol given. Patient educated on pain management and to follow up with PMD. Pain Scale 0/10. Opportunity for questions provided and answered. Medication side effect fact sheet provided.
[2018-12-26 12:45] VITALS: BP_SYST 122
== END 2018-12-26 12:44 | disposition home or self-care (01) ==
LOC: SED 10:37
DX: R07.89 Other chest pain (principal); R03.0 Elevated blood-pressure reading, without diagnosis of hypertension; E78.00 Pure hypercholesterolemia, unspecified; F41.9 Anxiety disorder, unspecified; Z86.2 Personal history of diseases of the blood and blood-forming organs and certain disorders involving the immune mechanism; Z88.8 Allergy status to other drugs, medicaments and biological substances
CPT/HCPCS: 36415; 71045; 80053; 82550; 83880; 84484; 85025; 96372; 99284; J1885

== ENCOUNTER 2019-01-11 17:47 | Emergency (ER) | payer BC, MEDICAID ==
[~2019-01-11] VITALS: Ht 154.9 cm; Wt 70.3 kg
[2019-01-11 17:50] VITALS: BP_SYST 120
--- NOTE | 2019-01-11 17:56 | NUR ---
Pt states she has had acute onset of abd pain 8/10 since last night, radiating to L side of chest. Pt also states headache 8/10. Pt states she has had appendix removed in May/July of this year. Pt states blurry vision sometimes, SOB "all of the time". Pt denies N/V, Dizziness. Pt denies any other medical complaint at this time. Pt changed into hospital gown, resting in bed with no acute signs of distress. Pt vss, will continue to monitor
--- NOTE | 2019-01-11 17:58 | NUR ---
ER at bedside examining patient.
--- NOTE | 2019-01-11 18:00 | NUR ---
Report given to ASHLEY Soot - All care endorsed
[2019-01-11] MEDS ORDERED: NACL 0.9% 1,000 ML IV ONE (18:08)
[2019-01-11] MEDS ORDERED: ASPIRIN 81 MG TAB.CHEW PO ONE (18:15)
--- NOTE | 2019-01-11 18:25 | NUR ---
# 18 gauge angiocath placed to left AC. Use of asceptic technique. Opsite placed over site. Blood return noted. Blood for lab drawn from site. Flushed with 10 cc of normal saline. No evidence of infiltration noted. Patient tolerated well.
--- NOTE | 2019-01-11 18:30 | NUR ---
Medicated per MD orders. IVF infusing with no s/s of infiltration at this time. Will cont to monitor
[2019-01-11 19:16] LABS: CALCIUM 8.9 mg/dL (8.4-11.0); CREATININE 0.64 mg/dL (0.55-1.30); POTASSIUM 3.7 mmol/L (3.5-5.1)
--- NOTE | 2019-01-11 19:16 | NUR ---
Report to Julio RAMIREZ
[2019-01-11 19:27] LABS: BASOPHILS % (AUTO) 0.7 % (0.0-2.0); EOSINOPHILS # (AUTO) 0.2 K/uL (0.0-0.4); HEMATOCRIT 46.7 % (36-48); HEMOGLOBIN 15.9 g/dL (12.0-16.0); LYMPHOCYTES # (AUTO) 1.8 K/uL (1.0-5.5); LYMPHOCYTES % (AUTO) 28.9 % (20.5-51.5); MEAN CORPUSCULAR HEMOGLOBIN 33 pg (27-31); MEAN CORPUSCULAR HGB CONC 34 % (32-36); MEAN CORPUSCULAR VOLUME 96 fL (79.0-98.0); MONOCYTES # (AUTO) 0.4 K/uL (0.0-1.0); MONOCYTES % (AUTO) 7.1 % (1.7-9.3); NEUTROPHILS # (AUTO) 3.7 K/uL (1.8-7.7); NEUTROPHILS % (AUTO) 60.3 % (40.0-70.0); PLATELET COUNT (AUTO) 266 K/uL (130-430); RED BLOOD CELL COUNT(AUTO) 4.86 MIL/uL (4.2-6.2); WHITE BLOOD COUNT (AUTO) 6.1 K/uL (4.8-10.8)
[2019-01-11 19:28] LABS: ALBUMIN 3.4 g/dL (3.4-4.8); TOTAL BILIRUBIN 0.4 mg/dL (0.0-1.0)
--- NOTE | 2019-01-11 21:00 | NUR ---
Dr. Quinonez bedside for Pt eval
[2019-01-11] MEDS ORDERED: ONDANSETRON HCL 4 MG/2 ML VIAL IVP ONE (21:15)
[2019-01-11] MEDS ORDERED: MORPHINE 2 MG/ML INJ. SYRINGE IVP ONE (21:15)
--- NOTE | 2019-01-11 21:15 | NUR ---
Patient transported to radiology via gurney, accompanied by radiology staff.
--- NOTE | 2019-01-11 21:18 | NUR ---
Pt taken to Radiology in stable condition
--- NOTE | 2019-01-11 22:18 | NUR ---
Pt has been medicated for pain and nausea. Currently resting in bed using her cellular phone at this time. Will continue to monitor.
--- NOTE | 2019-01-11 22:46 | NUR ---
Dr. Quinonez re-evaluating patient
--- NOTE | 2019-01-11 23:30 | NUR ---
Pt is resting in bed, no acute distress noted at this time.
--- NOTE | 2019-01-12 00:15 | NUR ---
Dr. Quinonez bedside for Pt update
[2019-01-12 00:45] VITALS: BP_SYST 122
[2019-01-12] MEDS ORDERED: PANTOPRAZOLE SODIUM 40 MG TAB PO ONE (00:45)
--- NOTE | 2019-01-12 00:50 | NUR ---
Patient given written and verbal discharge instructions and verbalizes understanding. ER MD discussed with patient the results and treatment provided. Patient in stable condition. ID arm band removed. IV catheter removed intact and dressing applied, no active bleeding. Rx of Falconer and Protonix given. Patient educated on pain management and to follow up with PMD. Pain Scale 0. Opportunity for questions provided and answered. Medication side effect fact sheet provided.
== END 2019-01-12 00:50 | disposition home or self-care (01) ==
LOC: SED 17:47
DX: K29.70 Gastritis, unspecified, without bleeding (principal); F41.9 Anxiety disorder, unspecified; E78.00 Pure hypercholesterolemia, unspecified; Z86.2 Personal history of diseases of the blood and blood-forming organs and certain disorders involving the immune mechanism; Z88.8 Allergy status to other drugs, medicaments and biological substances
CPT/HCPCS: 36415; 70450; 71045; 74021; 74176; 80053; 82550; 83690; 84484; 85025; 93005; 96361; 96374; 96375; 99284; J2270; J2405; J7030

== ENCOUNTER 2019-04-17 16:57 | Emergency (ER) | payer BC, MEDICAID ==
[~2019-04-17] VITALS: Ht 152.4 cm; Wt 69.9 kg
[2019-04-17 17:21] VITALS: BP_SYST 124
--- NOTE | 2019-04-17 17:26 | NUR ---
Patient triaged and placed in waiting room. VSS and patient appears in no acute distress at this time. Accompanied by family, awaiting available bed, and MD notified of need for MSE.
--- NOTE | 2019-04-17 20:23 | NUR ---
Patient left without being seen. No further treatment provided. ER MD aware
--- NOTE | 2019-04-17 20:23 | NUR ---
Called pt in x 3, no answer
== END 2019-04-17 20:23 | disposition left against medical advice (07) ==
LOC: SED 16:57
DX: R07.9 Chest pain, unspecified (principal); Z53.21 Procedure and treatment not carried out due to patient leaving prior to being seen by health care provider

== ENCOUNTER 2020-03-21 18:42 | Emergency (ER) | payer BC, MEDICAID ==
[~2020-03-21] VITALS: Ht 154.9 cm; Wt 73.5 kg
[2020-03-21 18:52] VITALS: BP_SYST 115
[2020-03-21 20:32] LABS: STREPTOCOCCUS A SCREEN (RAPID) NEGATIVE (NEGATIVE)
[2020-03-21] MEDS ORDERED: KETOROLAC TROMETHAMINE 30 MG VIAL ONE (20:45)
[2020-03-21 20:58] LABS: INFLUENZA A&B ANTIGEN SCREEN NEGATIVE FOR A & B (NEGATIVE)
[2020-03-21 21:14] VITALS: BP_SYST 109
== END 2020-03-21 21:15 | disposition home or self-care (01) ==
LOC: SED 18:42
DX: J06.9 Acute upper respiratory infection, unspecified (principal); E78.00 Pure hypercholesterolemia, unspecified; F41.9 Anxiety disorder, unspecified; K76.0 Fatty (change of) liver, not elsewhere classified; E11.9 Type 2 diabetes mellitus without complications; Z86.2 Personal history of diseases of the blood and blood-forming organs and certain disorders involving the immune mechanism; Z88.8 Allergy status to other drugs, medicaments and biological substances; Z20.828 Contact with and (suspected) exposure to other viral communicable diseases
CPT/HCPCS: 86403; 86710; 87081; 87426; 99283; J1885; 36415